=== PATIENT | male | born 1965 | race Caucasian/White ===

== ENCOUNTER 2024-02-20 01:03 | Day surgery (SDC) | payer BC, SELFPAY ==
[2024-02-05 11:11] VITALS: BMI 27.3
[2024-02-20 08:31] VITALS: BP 133/61; PULSE 68; RESP 20; TEMP 36.6; O2SAT 98; BMI 27.0
[2024-02-20] MEDS: LACTATED RINGERS 1,000 ML 150 ML IV CONT (08:42)
--- NOTE | 2024-02-20 09:04 | P.PNAN_ITS ---
Anes - Initial Pre Proc Eval Procedure: Operation Date: 02/20/24 10:00 Proposed Procedures p Colonoscopy - Nish Linares MD Date/Time: 02/20/24 09:04 Surgeon: Nish Linares MD Pre Op Diagnosis: Family hx. colon CA Patient Data Age: 58 Gender: M Height: 1.75 m Weight: 83.1 kg Last Vital Signs Temp 98 F 02/20/24 08:31 Pulse 68 02/20/24 08:31 Resp 20 02/20/24 08:31 BP 133/61 02/20/24 08:31 Pulse Ox 98 02/20/24 08:31 O2 Del Method Room Air 02/20/24 08:31 Allergies Allergy/AdvReac Type Severity Reaction Status Date / Time No Known Allergies Allergy Verified 02/20/24 08:29 Home Medications Medication Instructions Recorded Confirmed Type ferrous fumarate-vitamin C 66 1 tablet PO DAILY 10/18/22 02/20/24 History mg-125 mg chewable tablet vitamin B complex 1 cap PO DAILY 01/24/23 02/20/24 History semaglutide (weight loss) 2.4 2.4 mg (0.75 mL) subcut WEEKLY #3 09/26/23 02/20/24 Rx mg/0.75 mL subcutaneous pen mL injector (Wegovy) ascorbic acid (vitamin C) 1 tablet PO DAILY 02/05/24 02/20/24 History atorvastatin 20 mg tablet 20 mg PO DAILY 02/05/24 02/20/24 History cholecalciferol (vitamin D3) 25 25 mcg PO EVERY OTHER DAY 02/05/24 02/20/24 History mcg (1,000 unit) tablet (Vitamin D3) folic acid 1 cap PO DAILY 02/05/24 02/20/24 History levothyroxine 175 mcg tablet 175 mcg PO DAILY 02/05/24 02/20/24 History hoopxmyi-[id number]-[id number] 45 mg-folic 1 cap PO DAILY 02/05/24 02/20/24 History acid 800 mcg-vit K 120 mcg capsule (Bariatric Multivitamins) Patient hx anesthesia problems: none Family hx anesthesia problems: none Results Review: All pre-operative results and documents have been reviewed as part of the pre-operative evaluation. PMFSH Family History Family History Mother Hypertension Carcinoma of colon Family history of diabetes mellitus in first degree relative Family history of heart disease in male family member before age 55 Father Family history of heart disease in male family member before age 55 Social History Social History Smoking status: Never smoker Second hand tobacco smoke exposure: No Alcohol intake: never Alcohol use details: very rarely Substance use: never Substance use type: does not use Lack of Transportation: No Lack of Food: Never True Current Housing: I Have Housing Concerned About Future Housing: No Difficulty Paying Gas/Electric Bills: No Difficulty Paying for Meds: No Currently Unemployed: No Education: Bachelor's Degree Difficulty w/ Childcare or Family Care: No Living arrangements: alone Spiritual care concerns: No Anes - Eval Final PreProcedure Day of Procedure 02/20/24 09:04 Patient weight: overweight Heart: regular rate and rhythm Lungs: clear to auscultation Airway: Mallampati scale class II Neurological: alert and oriented Last oral intake: >/= 8 hours ASA classification: III Emergent: no Anesthetic plan: proceed Anesthesia type and monitoring: general GIVS and standard monitoring Results Review: All pre-operative results and documents have been reviewed as part of the pre- operative evaluation. DEANNE on CPAP, hyperlipidemia, hypothyroidism, pt on wejovy (off 2 weeks). Informed Consent: The patient's anesthetic plan and its attendant risks and benefits were discussed with the patient/family/POA. Questions were solicited and answers provided to the satisfaction of the patient/family/POA.
--- NOTE | 2024-02-20 09:10 | PM.HPGS ---
History of Present Illness History of Present Illness Consent: Risks, benefits, and alternatives have been discussed and questions answered. Patient agrees to proceed with procedure. Chief complaint: Family hx. colon CA Narrative: Jacob Callahan is a 58 year old male with last colonoscopy in 2019, mother had colon cancer Review of Systems Review of Systems: All systems reviewed & are unremarkable except as noted in HPI and below PMFSH Family History Family History Mother Hypertension Carcinoma of colon Family history of diabetes mellitus in first degree relative Family history of heart disease in male family member before age 55 Father Family history of heart disease in male family member before age 55 Social History Social History Smoking status: Never smoker Second hand tobacco smoke exposure: No Alcohol intake: never Alcohol use details: very rarely Substance use: never Substance use type: does not use Lack of Transportation: No Lack of Food: Never True Current Housing: I Have Housing Concerned About Future Housing: No Difficulty Paying Gas/Electric Bills: No Difficulty Paying for Meds: No Currently Unemployed: No Education: Bachelor's Degree Difficulty w/ Childcare or Family Care: No Living arrangements: alone Spiritual care concerns: No Meds Home Medications and Allergies Home Medications Medication Instructions Recorded Confirmed Type ferrous fumarate-vitamin C 66 1 tablet PO DAILY 10/18/22 02/20/24 History mg-125 mg chewable tablet vitamin B complex 1 cap PO DAILY 01/24/23 02/20/24 History semaglutide (weight loss) 2.4 2.4 mg (0.75 mL) subcut WEEKLY #3 09/26/23 02/20/24 Rx mg/0.75 mL subcutaneous pen mL injector (Betzaida) ascorbic acid (vitamin C) 1 tablet PO DAILY 02/05/24 02/20/24 History atorvastatin 20 mg tablet 20 mg PO DAILY 02/05/24 02/20/24 History cholecalciferol (vitamin D3) 25 25 mcg PO EVERY OTHER DAY 02/05/24 02/20/24 History mcg (1,000 unit) tablet (Vitamin D3) folic acid 1 cap PO DAILY 02/05/24 02/20/24 History levothyroxine 175 mcg tablet 175 mcg PO DAILY 02/05/24 02/20/24 History yjudplmh-[id number] 45 mg-folic 1 cap PO DAILY 02/05/24 02/20/24 History acid 800 mcg-vit K 120 mcg capsule (Bariatric Multivitamins) Allergies Allergy/AdvReac Type Severity Reaction Status Date / Time No Known Allergies Allergy Verified 02/20/24 08:29 Vital Signs Vital Signs - 24 hr 02/20/24 08:31 Temperature 98 F Pulse Rate 68 Respiratory Rate 20 Blood Pressure 133/61 Pulse Oximetry 98 Oxygen Delivery Room Air Exam Const: General: comfortable and no acute distress HENMT: Face/Nose/Sinus: Normal nares present Eyes: General: appearance normal, both eyes and all related structures Neck: Neck: no JVD Resp: Auscultation: clear to auscultation bilaterally Cardio: Rate: regular rate Rhythm: regular rhythm GI: Inspection: non-distended GI Palp: Yes Soft to palpation Skin: General skin exam: normal color Neuro: General: gait normal Speech: normal speech Extrem: General: normal to inspection Psych: Mental Status: mental status grossly normal Assessment and Plan Assessment and plan (1) Family history of colon cancer in mother: Code(s): Z80.0 - Family history of malignant neoplasm of digestive organs Status: Acute Assessment and Plan: colonoscopy
[2024-02-20 09:21] VITALS: BP 105/58; PULSE 72; RESP 22; O2SAT 98
[2024-02-20 09:31] VITALS: BP 104/65; PULSE 67; RESP 19; O2SAT 100
[2024-02-20 09:41] VITALS: BP 115/66; PULSE 57; RESP 13; O2SAT 100
== END 2024-02-20 09:45 | disposition home or self-care (01) ==
PROVIDERS: PCP Nurse Practitioner; Referring Provider Nurse Practitioner; Visit Provider Internal Medicine Gastroenterology
PROC: 0DJD8ZZ Inspection of Lower Intestinal Tract, Via Natural or Artificial Opening Endoscopic (ICD-10-PCS; CPT 45378; principal; 2024-02-20 10:00)
DX: Z12.11 Encounter for screening for malignant neoplasm of colon (principal); K64.8 Other hemorrhoids; Z79.85 Long-term (current) use of injectable non-insulin antidiabetic drugs; Z80.0 Family history of malignant neoplasm of digestive organs; Z82.49 Family history of ischemic heart disease and other diseases of the circulatory system
CPT/HCPCS: 45378; J2704; J7120